=== PATIENT | female | born 1975 ===

== ENCOUNTER 2017-09-19 06:30 | Emergency (ER) | payer OTHER ==
[2017-09-19 06:31] VITALS: BMI 33.0
[2017-09-19 07:06] VITALS: RESP 18
[2017-09-19 07:24] LABS: URINE BILIRUBIN NEGATIVE (NEGATIVE); URINE BLOOD NEGATIVE (NEGATIVE); URINE GLUCOSE (UA) NEGATIVE (NEGATIVE); URINE KETONE NEGATIVE (NEGATIVE); URINE LEUKOCYTE ESTERASE NEGATIVE Leu/uL (NEGATIVE); URINE PROTEIN NEGATIVE mg/dL (<30 mg/dL); URINE UROBILINOGEN 0.2 E.U./dL (<1 E.U./dL)
[2017-09-19 07:34] LABS: URINE APPEARANCE CLEAR (CLEAR); URINE COLOR YELLOW (YELLOW)
--- NOTE | 2017-09-19 08:01 | ED PDOC ---
Arrival/HPI - General Chief Complaint: Female Genitourinary Time Seen by Provider: 09/19/17 07:06 Historian: Patient - History of Present Illness Narrative History of Present Illness (Text): 09/19/17 08:01 A 42 year old female presents to the emergency department complaining of vaginal and suprapubic pain since last night. Patient describes her pain as a burning and tightening sensation. She reports she was recently seen at a clinic to get tested for std's. Patient has not received her results at this time but reports she was placed on Doxycycline. Patient reports dysuria for several days , and is currently still taking doxycyline. She also reports "feeling like my clitoris is swollen" and has some pain with intercourse. Denies vaginal discharge or vaginal bleeding. Denies any upper abdominal pain. Denies any rash. Denies any nausea or vomiting. Time/Duration: Other (last night) Symptom Course: Unchanged Quality: Other Context: Home, Work Past Medical History - Provider Review Nursing Documentation Reviewed: Yes - Infectious Disease Hx of Infectious Diseases: None - Tetanus Immunization Tetanus Immunization: Unknown - Past Medical History Past Medical History: No Previous - Cardiac Hx Cardiac Disorders: No - Pulmonary Hx Respiratory Disorders: No - Neurological Hx Neurological Disorder: No - HEENT Hx HEENT Disorder: No - Renal Hx Renal Disorder: Yes Hx Kidney Stones: Yes (STENT PLACEMENT 2012) - Endocrine/Metabolic Hx Endocrine Disorders: No - Hematological/Oncological Hx Anemia: Yes Hx Blood Transfusions: Yes - Integumentary Hx Dermatological Disorder: No (LIPOMA) - Musculoskeletal/Rheumatological Hx Musculoskeletal Disorders: No - Gastrointestinal Hx Gastrointestinal Disorders: Yes Hx Gall Bladder Disease: Yes (LAP GARRETT 04-14-15) - Genitourinary/Gynecological Hx Genitourinary Disorders: No (7 ABORTIONS) - Psychiatric Hx Psychophysiologic Disorder: No (SMOKED CIGARETTES H/O) Hx Substance Use: No - Past Surgical History Past Surgical History: No Previous - Surgical History Hx Cholecystectomy: Yes Hx Tubal Ligation: Yes Other/Comment: TUBAL LIGATIONLIMPOMA REMOVAL ON ARMS AND LEGS (BILATERAL) - Anesthesia Hx Anesthesia: Yes Hx Anesthesia Reactions: No Hx Malignant Hyperthermia: No - Suicidal Assessment Feels Threatened In Home Enviroment: No Family/Social History - Physician Review Nursing Documentation Reviewed: Yes Family/Social History: No Known Family HX Smoking Status: Former Smoker Hx Alcohol Use: Yes Hx Substance Use: No Hx Substance Use Treatment: No Allergies/Home Meds Allergies/Adverse Reactions: Allergies tramadol Allergy (Verified 08/08/17 14:06) SWELLING tilapia Adverse Reaction (Uncoded 08/08/17 14:06) RASH Home Medications: Home Meds Medication Instructions Recorded Confirmed Doxycycline Hyclate [Acticlate] 150 mg PO TID 09/19/17 09/19/17 Review of Systems - Review of Systems Constitutional: absent: Fatigue, Fevers, Night Sweats Respiratory: absent: SOB Cardiovascular: absent: Chest Pain Gastrointestinal: Abdominal Pain. absent: Stool Changes, Constipation, Diarrhea , Nausea, Vomiting, Appetite Changes, Hematochezia, Hematemesis Genitourinary Female: Dysuria, Other (vaginal pain). absent: Frequency, Urine Output Changes, Vaginal Bleeding, Vaginal Discharge Musculoskeletal: absent: Back Pain Skin: absent: Rash Neurological: absent: Headache, Dizziness Endocrine: absent: Polyuria, Polydipsia Hemo/Lymphatic: absent: Easy Bleeding Physical Exam - Physical Exam Narrative Physical Exam (Text): Head: Atraumatic. Normocephalic. Eyes: PERRL. EOMI. Conjunctivae are not pale. ENT: Mucous membranes are moist and intact. Oropharynx is clear and symmetric. Neck: Supple. Full ROM. No JVD. No lymphadenopathy. Cardiovascular: Regular rate. Regular rhythm. No murmurs, rubs, or gallops. Distal pulses are 2+ and symmetric. Pulmonary/Chest: No evidence of respiratory distress. Abdominal: Soft and non-distended. Mild suprapubic tenderness to palpation. No rebound, guarding, or rigidity. No organomegaly. Good bowel sounds. Genitourinary: Pelvic exam performed by me, chaperoned by scribe. No lesions, no discharge, no bleeding, no rash. No bartholin's abscess noted. No vaginal discharge. Back: No CVA tenderness. No lower back pain. Extremities: No edema. No cyanosis. No clubbing. Full range of motion in all extremities. No calf tenderness. Skin: Skin is warm and dry. No petechiae. No purpura. Neurological: Alert, awake. Motor and sensory exam intact. Psychiatric: Good eye contact. Normal interaction, affect, and behavior. Vital Signs Reviewed: Yes Vital Signs Temp Pulse Resp BP Pulse Ox 09/19/17 09:00 98 F 83 18 120/75 100 09/19/17 07:01 98.8 F 78 18 102/64 99 Temperature: Afebrile Blood Pressure: Normal Pulse: Regular Respiratory Rate: Normal Appearance: Positive for: Well-Appearing, Non-Toxic, Comfortable Pain Distress: None Mental Status: Positive for: Alert and Oriented X 3 Medical Decision Making ED Course and Treatment: 09/19/17 08:01 Impression: A 42 year old female with vaginal and suprapubic pain Differential Diagnosis included but are not limited to: UTI vs. STD vs. Vaginitis Plan: -- Urine culture -- Urinalysis -- Reassess and disposition Progress Notes: Patient's prior visits and history was reviewed. On exam she is afebrile, has no upper abdominal pain. No vomiting or diarrhea. Reports "pain around my clitoris". I examined patient with female scribe friend of the court, there is no lesion or swelling or rash noted, no vaginal bleeding or discharge. Patient is afebrile , nontoxic appearing. Urine culture will be sent as she is complaining of dysuria. She has been treated with doxycycline. With serial exams she is well hydrated, nontoxic appearing, no cva tenderness. She has no RLQ pain, no vomiting or diarrhea. I will prescribe Keflex for possible persistent UTI, and urine culture will be sent, which I discussed with patient. Current UA unremarkable, although urine culture sent due to symptoms. Patient with no fever or joint pain or rash on re-evaluation. Stressed need for close follow-up of symptoms and follow-up of urine culture. - Lab Interpretations Microbiology Results: Microbiology Results 09/19/17 07:11 Urine,Clean Catch Urine Culture - Final Gram Positive Cocci Lab Results: Lab Results 09/19/17 08:33: C.trachomatis RNA (TMA) Not detected, N.gonorrhoeae RNA (TMA) Not detected 09/19/17 07:46: Urine HCG, Qual Negative 09/19/17 07:11: Urine Color Yellow, Urine Appearance Clear, Urine pH 6.0, Ur Specific [place] >= 1.030, Urine Protein Negative, Urine Glucose (UA) Negative, Urine Ketones Negative, Urine Blood Negative, Urine Nitrate Negative, Urine Bilirubin Negative, Urine Urobilinogen 0.2, Ur Leukocyte Esterase Negative - Scribe Statement The provider has reviewed the documentation as recorded by the Koko Marroquin Provider Scribe Attestation: All medical record entries made by the Scribe were at my direction and personally dictated by me. I have reviewed the chart and agree that the record accurately reflects my personal performance of the history, physical exam, medical decision making, and the department course for this patient. I have also personally directed, reviewed, and agree with the discharge instructions and disposition. Disposition/Present on Arrival - Present on Arrival Any Indicators Present on Arrival: No History of DVT/PE: No History of Uncontrolled Diabetes: No Urinary Catheter: No History of Decub. Ulcer: No History Surgical Site Infection Following: None - Disposition Have Diagnosis and Disposition been Completed?: Yes Diagnosis: Vaginal pain, Dysuria Disposition: HOME/ ROUTINE Disposition Time: 11:30 Patient Plan: Discharge Condition: GOOD Discharge Instructions (ExitCare): Abdominal Pain (ED) Additional Instructions: Follow-up with your transplant immunologist tomorrow for re-evaluation. Avoid sexual activity until cleared by transplant immunologist. For any vaginal bleeding, any vaginal discharge, any abdominal pain, any nausea or vomiting, any fevers or chills, any chest pain or shortness of breath, any rash, any rectal pain, any persistent or worsening of symptoms, get rechecked. For any swelling or redness to your vaginal region get rechecked. Take antibiotics as directed. Prescriptions: Cephalexin [Keflex] 250 mg PO QID #28 capsule Ref[place]: [facility] [place] [facility] [place] [facility] [place] - [facility] with [facility] [Outside] - Follow up with primary PCP,NO [Primary Care Provider] - Follow up with primary Forms: [employer] (Cape Verdean)
[2017-09-19 09:27] VITALS: BP 120/75; PULSE 83; TEMP 98; O2SAT 100
== END 2017-09-19 09:27 | disposition home or self-care (01) ==
LOC: ED 06:30
DX: R30.0 Dysuria (principal); R10.2 Pelvic and perineal pain

== ENCOUNTER 2017-09-21 19:55 | Emergency (ER) | payer OTHER ==
[2017-09-21 19:55] VITALS: BMI 33.0
[2017-09-21] MEDS ORDERED: Sodium Chloride 0.9% 1,000 ML IV STA (20:25)
--- NOTE | 2017-09-21 20:40 | ED PDOC ---
Arrival/HPI - General Chief Complaint: Abdominal Pain Time Seen by Provider: 09/21/17 19:59 Historian: Patient - History of Present Illness Narrative History of Present Illness (Text): 09/21/17 20:36 42yo female with no PMhx who present with complaint of diffuse abdominal pain with associated nausea, vomiting and diarrhea since last night. Notes that pain symptoms started after eating hot dog last night. He did not take any medication. He denies fever, chills, hematuria, hematemesis, urinary symptoms, chest pain, sick contact. She is currently on Doxycycline and Keflex for UTI. Past Medical History - Provider Review Nursing Documentation Reviewed: Yes - Infectious Disease Hx of Infectious Diseases: None - Tetanus Immunization Tetanus Immunization: Unknown - Past Medical History Past Medical History: No Previous - Cardiac Hx Cardiac Disorders: No - Pulmonary Hx Respiratory Disorders: No - Neurological Hx Neurological Disorder: No - HEENT Hx HEENT Disorder: No - Renal Hx Renal Disorder: Yes Hx Kidney Stones: Yes (STENT PLACEMENT 2012) - Endocrine/Metabolic Hx Endocrine Disorders: No - Hematological/Oncological Hx Anemia: Yes Hx Blood Transfusions: Yes - Integumentary Hx Dermatological Disorder: No (LIPOMA) - Musculoskeletal/Rheumatological Hx Musculoskeletal Disorders: No - Gastrointestinal Hx Gastrointestinal Disorders: Yes Hx Gall Bladder Disease: Yes (LAP GARRETT 04-14-15) - Genitourinary/Gynecological Hx Genitourinary Disorders: No (7 ABORTIONS) - Psychiatric Hx Psychophysiologic Disorder: No (SMOKED CIGARETTES H/O) Hx Substance Use: No - Past Surgical History Past Surgical History: No Previous - Surgical History Hx Cholecystectomy: Yes Hx Tubal Ligation: Yes Other/Comment: TUBAL LIGATIONLIMPOMA REMOVAL ON ARMS AND LEGS (BILATERAL) - Anesthesia Hx Anesthesia: Yes Hx Anesthesia Reactions: No Hx Malignant Hyperthermia: No - Suicidal Assessment Feels Threatened In Home Enviroment: No Family/Social History - Physician Review Nursing Documentation Reviewed: Yes Family/Social History: Unknown Family HX Smoking Status: Former Smoker Hx Alcohol Use: Yes Hx Substance Use: No Hx Substance Use Treatment: No Allergies/Home Meds Allergies/Adverse Reactions: Allergies tramadol Allergy (Verified 08/08/17 14:06) SWELLING tilapia Adverse Reaction (Uncoded 08/08/17 14:06) RASH Home Medications: Home Meds Medication Instructions Recorded Confirmed Doxycycline Hyclate [Acticlate] 150 mg PO TID 09/19/17 09/21/17 Review of Systems - Physician Review All systems were reviewed & negative as marked: Yes - Review of Systems Constitutional: Normal Eyes: Normal ENT: Normal Respiratory: Normal Cardiovascular: Normal Gastrointestinal: Abdominal Pain, Diarrhea, Nausea, Vomiting. absent: Constipation, Hematochezia, Hematemesis Genitourinary Female: Normal Musculoskeletal: Normal Skin: Normal Neurological: Normal Endocrine: Normal Hemo/Lymphatic: Normal Psychiatric: Normal Physical Exam Vital Signs Reviewed: Yes Vital Signs Temp Pulse Resp BP Pulse Ox 09/22/17 00:09 97.9 F 83 19 131/64 100 09/21/17 21:55 98.6 F 80 17 110/58 L 100 09/21/17 19:59 98.2 F 102 H 18 99 09/21/17 19:55 98.6 F 89 16 102/60 100 Temperature: Afebrile Blood Pressure: Normal Pulse: Regular Respiratory Rate: Normal Appearance: Positive for: Well-Appearing, Non-Toxic, Comfortable Pain Distress: None Mental Status: Positive for: Alert and Oriented X 3 - Systems Exam Head: Present: Atraumatic, Normocephalic Pupils: Present: PERRL Extroacular Muscles: Present: EOMI Conjunctiva: Present: Normal Mouth: Present: Moist Mucous Membranes Neck: Present: Normal Range of Motion Respiratory/Chest: Present: Clear to Auscultation, Good Air Exchange. No: Respiratory Distress, Accessory Muscle Use Cardiovascular: Present: Regular Rate and Rhythm, Normal S1, S2. No: Murmurs Abdomen: Present: Tenderness (Mild diffuse tenderness with deep palpation), Normal Bowel Sounds, Other (Soft). No: Distention, Peritoneal Signs, Rebound, Guarding, McBurney's Point Tender, Rovsing's Sign Present Back: Present: Normal Inspection Upper Extremity: Present: Normal Inspection. No: Cyanosis, Edema Lower Extremity: Present: Normal Inspection. No: Edema Neurological: Present: GCS=15, CN II-XII Intact, Speech Normal Skin: Present: Warm, Dry, Normal Color. No: Rashes Psychiatric: Present: Alert, Oriented x 3, Normal Insight, Normal Concentration Medical Decision Making ED Course and Treatment: 09/22/17 01:19 Pt was comfortable in ED. Her lab was unremarkable. Result was DW the pt. Pt likely have enteritis. she was advised to follow BLAND diet. Referred to her PMD /clinic. T ED for any new or worsening symptoms - Lab Interpretations Lab Results: 09/21/17 21:00 09/21/17 21:00 Lab Results 09/21/17 22:00: Urine Color Yellow, Urine Appearance Clear, Urine pH 6.0, Ur Specific [place] >= 1.030, Urine Protein Trace H, Urine Glucose (UA) Negative, Urine Ketones Negative, Urine Blood Trace-intact H, Urine Nitrate Negative, Urine Bilirubin Negative, Urine Urobilinogen 0.2, Ur Leukocyte Esterase Negative , Urine RBC 2 - 5, Urine WBC 0 - 2, Ur Epithelial Cells 3 - 4, Urine Bacteria Many 09/21/17 21:00: Sodium 141, Potassium 3.6, Chloride 103, Carbon Dioxide 29, Anion Gap 13, BUN 5 L, Creatinine 0.8, Est GFR ( Amer) > 60, Est GFR (Non -Af Amer) > 60, Random Glucose 100, Calcium 8.8, Total Bilirubin 0.7, AST 26, ALT 30, Alkaline Phosphatase 98, Total Protein 7.8, Albumin 4.2, Globulin 3.6, Albumin/Globulin Ratio 1.2, Lipase 54 09/21/17 21:00: PT 11.6, INR 1.06, APTT 21.9 L 09/21/17 21:00: WBC 6.9 D, RBC 4.38, Hgb 12.6, Hct 39.1, MCV 89.3, MCH 28.8, MCHC 32.2, RDW 13.8, Plt Count 238, MPV 10.9, Gran % 68.8 H, Lymph % (Auto) 25.5 , Granite % (Auto) 4.1, Eos % (Auto) 1.5, Baso % (Auto) 0.1, Gran # 4.73, Lymph # 1.8, Granite # 0.3, Eos # 0.1, Baso # 0.01 - Medication Orders Current Medication Orders: Discontinued Medications Famotidine (Pepcid) 20 mg IVP STAT STA Stop: 09/21/17 20:26 Sodium Chloride (Sodium Chloride 0.9%) 1,000 mls @ 1,000 mls/hr IV .Q1H STA Stop: 09/21/17 21:24 Ondansetron HCl (Zofran Inj) 4 mg IVP STAT STA Stop: 09/21/17 20:26 Disposition/Present on Arrival - Present on Arrival Any Indicators Present on Arrival: No History of DVT/PE: No History of Uncontrolled Diabetes: No Urinary Catheter: No History of Decub. Ulcer: No History Surgical Site Infection Following: None - Disposition Have Diagnosis and Disposition been Completed?: Yes Diagnosis: Gastroenteritis Disposition: HOME/ ROUTINE Disposition Time: 23:35 Patient Plan: Discharge Condition: STABLE Additional Instructions: Drink plenty of fluid and follow BLAND diet follow up with your Doctor Return to ED for any new or worsening symptoms Prescriptions: Ondansetron ODT [Zofran ODT] 4 mg PO Q6 #6 odt Referrals: PCP,NO [Primary Care Provider] - Follow up with primary [facility] [place] - Follow up with primary Forms: [employer] (Yi)
[2017-09-21 21:26] LABS: BASO # 0.01 K/mm3 (0.0-2.0); BASO % 0.1 % (0.0-3.0); EOS # 0.1 (0.0-0.7); EOS % 1.5 % (1.5-5.0); GRAN # 4.73 (1.4-6.5); GRAN % 68.8 % (50.0-68.0); HEMATOCRIT 39.1 % (36.0-48.0); LYMPH # 1.8 (1.2-3.4); LYMPH % 25.5 % (22.0-35.0); MEAN CELL VOLUME 89.3 fl (80.0-105.0); MEAN CORPUSCULAR HEMOGLOBIN 28.8 pg (25.0-35.0); MEAN CORPUSCULAR HGB CONC 32.2 g/dl (31.0-37.0); MEAN PLATELET VOLUME 10.9 fl (7.0-11.0); MONO # 0.3 (0.1-0.6); MONO % 4.1 % (1.0-6.0); RED CELL DISTRIBUTION WIDTH 13.8 % (11.5-14.5); WHITE BLOOD COUNT 6.9 10^3/ul (4.5-11.0)
[2017-09-21 21:36] LABS: INR 1.06 (0.93-1.08); PARTIAL THROMBOPLASTIN TIME 21.9 Seconds (25.1-36.5)
[2017-09-21 21:39] LABS: ALB/GLOB RATIO 1.2 (1.1-1.8); ALKALINE PHOSPHATASE 98 U/L (38-126); ALT/SGPT 30 U/L (7-56); AST/SGOT 26 U/L (14-36); BILIRUBIN,TOTAL 0.7 mg/dL (0.2-1.3); BLOOD UREA NITROGEN 5 mg/dL (7-21); CALCIUM 8.8 mg/dL (8.4-10.5); CARBON DIOXIDE 29 mmol/L (21-33); CHLORIDE 103 mmol/L (98-107); GFR AFRICAN-AMERICAN > 60; GLUCOSE,RANDOM 100 mg/dL (70-110); LIPASE 54 U/L (23-300); POTASSIUM 3.6 mmol/L (3.6-5.0); SODIUM 141 mmol/L (132-148); TOTAL PROTEIN 7.8 g/dL (5.8-8.3)
[2017-09-21 23:34] VITALS: O2SAT 100
[2017-09-22 00:02] LABS: URINE BILIRUBIN NEGATIVE (NEGATIVE); URINE BLOOD TRACE-INTACT (NEGATIVE); URINE GLUCOSE (UA) NEGATIVE (NEGATIVE); URINE KETONE NEGATIVE (NEGATIVE); URINE LEUKOCYTE ESTERASE NEGATIVE Leu/uL (NEGATIVE); URINE PROTEIN TRACE mg/dL (<30 mg/dL); URINE UROBILINOGEN 0.2 E.U./dL (<1 E.U./dL)
[2017-09-22 00:04] LABS: URINE APPEARANCE CLEAR (CLEAR); URINE COLOR YELLOW (YELLOW)
[2017-09-22 00:10] VITALS: BP 131/64; PULSE 83; RESP 19; TEMP 97.9
[2017-09-22 00:34] LABS: URINE BACTERIA MANY (NEG); URINE WBC 0 - 2 /hpf (0-6)
== END 2017-09-22 00:09 | disposition home or self-care (01) ==
LOC: ED 19:55
DX: K52.9 Noninfective gastroenteritis and colitis, unspecified (principal); Z87.891 Personal history of nicotine dependence

== ENCOUNTER 2017-11-30 20:31 | Emergency (ER) | payer SELFPAY ==
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
[2017-11-30] MEDS ORDERED: cefTRIAXone (Rocephin) 250 mg Inj IM STA (20:47)
[2017-11-30 20:59] VITALS: BMI 32.0
[2017-11-30 21:02] LABS: URINE BILIRUBIN NEGATIVE (NEGATIVE); URINE BLOOD MODERATE (NEGATIVE); URINE GLUCOSE (UA) NEGATIVE (NEGATIVE); URINE LEUKOCYTE ESTERASE TRACE Leu/uL (NEGATIVE); URINE NITRATE NEGATIVE (NEGATIVE); URINE PROTEIN NEGATIVE mg/dL (<30 mg/dL); URINE UROBILINOGEN 0.2 E.U./dL (<1 E.U./dL)
[2017-11-30 21:03] LABS: HCG,QUALITATIVE URINE NEGATIVE (NEGATIVE)
[2017-11-30 21:04] LABS: URINE APPEARANCE SLIGHT-CLOUDY (CLEAR); URINE COLOR YELLOW (YELLOW)
[2017-11-30 21:07] LABS: URINE BACTERIA MOD (NEG)
[2017-11-30] MEDS ORDERED: Lidocaine 1% Inj (20ml) ONE (21:07)
[2017-11-30 21:33] VITALS: BP 128/72; PULSE 89; RESP 17; TEMP 98.5; O2SAT 100
== END 2017-11-30 21:33 | disposition home or self-care (01) ==
LOC: ED 20:31
DX: N39.0 Urinary tract infection, site not specified (principal); A64 Unspecified sexually transmitted disease; R10.2 Pelvic and perineal pain; Z87.891 Personal history of nicotine dependence
CPT/HCPCS: 81001; 84703; 87086; 87491; 87591; 96372; 99282; J0696; J1885

== ENCOUNTER 2018-04-10 02:00 | Emergency (ER) | payer SELFPAY ==
[2018-04-10 02:24] VITALS: BMI 33.8
[2018-04-10 02:29] VITALS: BP 108/59; PULSE 62; RESP 18; TEMP 98; O2SAT 100
--- NOTE | 2018-04-10 02:38 | ED PDOC ---
Arrival/HPI - General Chief Complaint: Eye Problem Time Seen by Provider: 04/10/18 02:23 - History of Present Illness Narrative History of Present Illness (Text): 04/10/18 02:38 42 year old female, who denies any significant past medical history, presents to the emergency department complaining of redness and pain to the right eye. 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 Patient reports irritation and small amount of white discharge. She wears contact, but took them off after the incident. Patient reports blurry vision, but denies any fever, headache, dizziness, or any other complaints. Past Medical History - Provider Review Nursing Documentation Reviewed: Yes - Past History Past History: No Previous - Infectious Disease Hx of Infectious Diseases: None - Tetanus Immunization Tetanus Immunization: Unknown - Past Medical History Past Medical History: No Previous - Cardiac Hx Cardiac Disorders: No - Pulmonary Hx Respiratory Disorders: No - Neurological Hx Neurological Disorder: No - HEENT Hx HEENT Disorder: No - Renal Hx Renal Disorder: Yes Hx Kidney Stones: Yes (STENT PLACEMENT 2012) - Endocrine/Metabolic Hx Endocrine Disorders: No - Hematological/Oncological Hx Blood Disorders: Yes Hx Anemia: Yes - Integumentary Hx Dermatological Disorder: No (LIPOMA) - Musculoskeletal/Rheumatological Hx Musculoskeletal Disorders: Yes Hx Arthritis: Yes - Gastrointestinal Hx Gastrointestinal Disorders: Yes Hx Gall Bladder Disease: Yes (LAP GARRETT 04-14-15) - Genitourinary/Gynecological Hx Genitourinary Disorders: No - Psychiatric Hx Psychophysiologic Disorder: Yes Hx Anxiety: Yes Hx Depression: Yes Hx Substance Use: No - Past Surgical History Past Surgical History: No Previous - Surgical History Hx Cholecystectomy: Yes - Anesthesia Hx Anesthesia: Yes Hx Anesthesia Reactions: No Hx Malignant Hyperthermia: No - Suicidal Assessment Feels Threatened In Home Enviroment: No Family/Social History - Physician Review Nursing Documentation Reviewed: Yes Family/Social History: No Known Family HX Smoking Status: Former Smoker Hx Alcohol Use: Yes Hx Substance Use: No Hx Substance Use Treatment: No Allergies/Home Meds Allergies/Adverse Reactions: Allergies tramadol Allergy (Verified 04/10/18 02:24) SWELLING tilapia Adverse Reaction (Uncoded 04/10/18 02:24) RASH Review of Systems - Physician Review All systems were reviewed & negative as marked: Yes - Review of Systems Constitutional: absent: Fevers Neurological: absent: Headache Physical Exam - Physical Exam Narrative Physical Exam (Text): Constitutional: No acute distress. Head: Normocephalic. Atraumatic. Eyes: PERRL. Redness to the right eye. Sensitive to light. With florescence there was small area uptake. No Hyphema. No Mazin test. No foreign body seen in eye lids. ENT: Moist mucous membranes. Neck: Supple. Cardiovascular: Regular rate. Chest: No tenderness. Respiratory: Clear to auscultation bilaterally. GI: Soft. Nontender. Nondistended. Back: No CVA tenderness. Musculoskeletal: No tenderness or swelling of extremities. Skin: No rash. Neurologic: Alert, no focal deficit. 04/10/18 03:08 Vital Signs Reviewed: Yes Vital Signs Temp Pulse Resp BP Pulse Ox 04/10/18 02:28 98.0 F 62 18 108/59 L 100 Medical Decision Making ED Course and Treatment: 04/10/18 02:38 Plan: -- Florescence procedure. -- Reassess and disposition Progress Notes: I have discussed the results and plan with the patient, who expresses understanding. Patient was advised to take Motrin or Tylenol for the pain and was given antibiotic eye drops. Patient in agreement with plan to be discharged home. Patient is stable for discharge. Patient was instructed to follow up with top polisher, or return if symptoms worsen or new concerning symptoms arise. - Scribe Statement The provider has reviewed the documentation as recorded by the Scribe Amanda Persaud Provider Scribe Attestation: All medical record entries made by the Scribe were at my direction and personally dictated by me. I have reviewed the chart and agree that the record accurately reflects my personal performance of the history, physical exam, medical decision making, and the department course for this patient. I have also personally directed, reviewed, and agree with the discharge instructions and disposition. Disposition/Present on Arrival - Present on Arrival Any Indicators Present on Arrival: No History of DVT/PE: No History of Uncontrolled Diabetes: No Urinary Catheter: No History of Decub. Ulcer: No History Surgical Site Infection Following: None - Disposition Have Diagnosis and Disposition been Completed?: Yes Diagnosis: Corneal abrasion Disposition: HOME/ ROUTINE Disposition Time: 02:39 Patient Plan: Discharge Condition: STABLE Discharge Instructions (ExitCare): Corneal Abrasion Additional Instructions: Do not wear your contacts. Prescriptions: Tobramycin 0.3% [Tobrex 0.3% Ophth Soln] 2 drop OP Q6H #1 bottle Referrals: Timo Macias MD [Staff Provider] - Follow up with primary Forms: [employer] (Czech), WORK NOTE
== END 2018-04-10 02:47 | disposition home or self-care (01) ==
LOC: ED 02:00
DX: S05.01XA Injury of conjunctiva and corneal abrasion without foreign body, right eye, initial encounter (principal); X58.XXXA Exposure to other specified factors, initial encounter; Z87.891 Personal history of nicotine dependence

== ENCOUNTER 2018-09-23 04:00 | Emergency (ER) | payer OTHER ==
[2018-09-23 04:00] VITALS: BMI 33.8
[2018-09-23 04:18] VITALS: TEMP 98.1; O2SAT 100
--- NOTE | 2018-09-23 04:32 | ED PDOC ---
Arrival/HPI - General Chief Complaint: Palpitations Time Seen by Provider: 09/23/18 04:18 Historian: Patient - History of Present Illness Narrative History of Present Illness (Text): 09/23/18 04:28 A 43 year old female, with no significant past medical history, presents to the emergency department with a complaint of left- sided chest pain, SOB, and palpitations. Patient notes that she began to feel short of breath and a heart racing sensation tonight as she was sleeping. The patient notes that the chest pain has been occurring intermittently and she experienced it last week, as well as 2 days prior. She notes the chest pain is burning like, without radiation, not associated with exertion, only palpitations. The patient's last normal menstrual period was 08/06. The patient denies any fever, chills, abdominal pain, nausea, vomiting, diarrhea, urinary symptoms, back pain, neck pain, headache, dizziness, or any other complaints. PMD: Dr. Altman 09/25/18 22:36 Time/Duration: Other (Today) Symptom Onset: Sudden Symptom Course: Intermittent Activities at Onset: Rest, Light Context: Home Past Medical History - Provider Review Nursing Documentation Reviewed: Yes - Past History Past History: No Previous - Infectious Disease Hx of Infectious Diseases: None - Tetanus Immunization Tetanus Immunization: Unknown - Past Medical History Past Medical History: No Previous - Cardiac Hx Cardiac Disorders: No - Pulmonary Hx Respiratory Disorders: No - Neurological Hx Neurological Disorder: No - HEENT Hx HEENT Disorder: No - Renal Hx Renal Disorder: Yes Hx Kidney Stones: Yes (STENT PLACEMENT 2012) - Endocrine/Metabolic Hx Endocrine Disorders: No - Hematological/Oncological Hx Blood Disorders: Yes Hx Anemia: Yes - Integumentary Hx Dermatological Disorder: No (LIPOMA) - Musculoskeletal/Rheumatological Hx Musculoskeletal Disorders: Yes Hx Arthritis: Yes - Gastrointestinal Hx Gastrointestinal Disorders: Yes Hx Gall Bladder Disease: Yes (LAP GARRETT 04-14-15) - Genitourinary/Gynecological Hx Genitourinary Disorders: No - Psychiatric Hx Psychophysiologic Disorder: Yes Hx Anxiety: Yes Hx Depression: Yes Hx Substance Use: No - Past Surgical History Past Surgical History: No Previous - Surgical History Hx Cholecystectomy: Yes - Anesthesia Hx Anesthesia: Yes Hx Anesthesia Reactions: No Hx Malignant Hyperthermia: No - Suicidal Assessment Feels Threatened In Home Enviroment: No Family/Social History - Physician Review Nursing Documentation Reviewed: Yes Family/Social History: No Known Family HX Smoking Status: Former Smoker Hx Alcohol Use: Yes Hx Substance Use: No Hx Substance Use Treatment: No Allergies/Home Meds Allergies/Adverse Reactions: Allergies tramadol Allergy (Verified 04/10/18 02:24) SWELLING tilapia Adverse Reaction (Uncoded 04/10/18 02:24) RASH Review of Systems - Physician Review All systems were reviewed & negative as marked: Yes - Review of Systems Constitutional: absent: Fatigue, Weight Change, Fevers, Night Sweats Eyes: absent: Vision Changes, Photophobia, Eye Pain ENT: absent: Hearing Changes, Tinnitus, TMJ Pain, Voice Changes Respiratory: SOB. absent: Cough, Sputum, Wheezing Cardiovascular: Chest Pain, Palpitations. absent: Edema, Calf Pain, GOODRICH, Orthopnea, Syncope Gastrointestinal: absent: Abdominal Pain, Stool Changes, Constipation, Diarrhea, Nausea, Vomiting, Hematochezia, Hematemesis Genitourinary Female: absent: Dysuria, Frequency, Urine Output Changes Musculoskeletal: absent: Arthralgias, Back Pain, Neck Pain Skin: absent: Rash, Pruritis Neurological: absent: Headache, Dizziness Psychiatric: absent: Anxiety, Depression, Suicidal Ideation Physical Exam Vital Signs Reviewed: Yes Vital Signs Temp Pulse Resp BP Pulse Ox 09/23/18 04:17 98.1 F 80 16 124/74 100 Temperature: Afebrile Blood Pressure: Normal Pulse: Regular Respiratory Rate: Normal Appearance: Positive for: Well-Appearing, Non-Toxic, Comfortable Pain Distress: None Mental Status: Positive for: Alert and Oriented X 3 - Systems Exam Head: Present: Atraumatic, Normocephalic Pupils: Present: PERRL Extroacular Muscles: Present: EOMI Conjunctiva: Present: Normal Mouth: Present: Moist Mucous Membranes Neck: Present: Normal Range of Motion. No: Meningeal Signs, MIDLINE TENDERNESS Respiratory/Chest: Present: Clear to Auscultation, Good Air Exchange, Tender to Palpation (Reproducible chest pain to palpation.). No: Respiratory Distress, Accessory Muscle Use Cardiovascular: Present: Regular Rate and Rhythm, Normal S1, S2. No: Murmurs Abdomen: No: Tenderness, Distention, Peritoneal Signs Back: Present: Normal Inspection Upper Extremity: Present: Normal Inspection. No: Cyanosis, Edema Lower Extremity: Present: Normal Inspection. No: Edema Neurological: Present: GCS=15, CN II-XII Intact, Speech Normal Skin: Present: Warm, Dry, Normal Color. No: Rashes Psychiatric: Present: Alert, Oriented x 3, Normal Insight, Normal Concentration Medical Decision Making ED Course and Treatment: 09/23/18 04:32 Impression: A 43 year old female presents to the emergency department with a complaint of intermittent chest pain, SOB, and palpitations. Multiple episodes throughtout the weak, however with chest pain palpable on exam. Unlikely cardiac chest pain given re-producible nature, and without RF. Low pretest wells, Pt has PERCed out. HEART Score: Stor: 0 Age: 0 RF: 0 EK troponin: pending Plan: -- EKG -- Labs -- Reassess and disposition Prior Visits: Notes and results from previous visits were reviewed. Progress Notes: EKG: Ordered, reviewed, and independently interpreted the EKG. Rate : 78 BPM Rhythm : NSR Interpretation : No STEMI 09/23/18 06:55 labs unremarkable, XR unremarkable Heart score: 0 CP improved, and now fully resolved clear for d/c home w/ return indications and followup, pt agreeable. - Lab Interpretations I have reviewed the lab results: Yes - EKG Interpretation Interpreted by ED Physician: Yes Type: 12 lead EKG - Scribe Statement The provider has reviewed the documentation as recorded by the Scribe Barbara Huffman Provider Scribe Attestation: All medical record entries made by the Scribe were at my direction and personally dictated by me. I have reviewed the chart and agree that the record accurately reflects my personal performance of the history, physical exam, medical decision making, and the department course for this patient. I have also personally directed, reviewed, and agree with the discharge instructions and disposition. Disposition/Present on Arrival - Present on Arrival Any Indicators Present on Arrival: No History of DVT/PE: No History of Uncontrolled Diabetes: No Urinary Catheter: No History of Decub. Ulcer: No History Surgical Site Infection Following: None - Disposition Have Diagnosis and Disposition been Completed?: Yes Diagnosis: Chest wall pain Disposition: HOME/ ROUTINE Disposition Time: 06:55 Condition: GOOD Discharge Instructions (ExitCare): Costochondritis, Chest Pain That Is Not Caused by the Heart (DC), Chest Pain (ED) Additional Instructions: KARELY MARTIN, thank you for letting us take care of you today. Your provider was Mark Small and you were treated for shortness of breath / heart problem. The emergency medical care you received today was directed at your acute symptoms. If you were prescribed any medication, please fill it and take as directed. It may take several days for your symptoms to resolve. Return to the Emergency Department if your symptoms worsen, do not improve, or if you have any other problems. Please contact your doctor or call one of the physicians/clinics you have been referred to that are listed on the Patient Visit Information form that is included in your discharge packet. Bring any paperwork you were given at discharge with you along with any medications you are taking to your follow up visit. Our treatment cannot replace ongoing medical care by a primary care provider outside of the emergency department. Thank you for allowing the [facility] team to be part of your care today. If you had an X-Ray or CT scan: A Radiologist will review the ED reading if any change in treatment is needed we will contact you. If you had a blood, urine, or wound culture: It will take several days for the results, if any change in treatment is needed we will contact you. If you had an STI test: It will take 48 hours for the results. Please call after 1 week if you have not heard back. Referrals: [facility] [Outside] - Follow up with primary [facility] [place] - Follow up with primary [facility] [Outside] - Follow up with primary Neil Mtz MD [Staff Provider] - Follow up with primary Forms: [employer] (Slovak)
[2018-09-23 05:07] LABS: BASO # 0.03 K/mm3 (0.0-2.0); BASO % 0.3 % (0.0-3.0); EOS # 0.2 (0.0-0.7); EOS % 1.9 % (1.5-5.0); GRAN # 6.31 (1.4-6.5); HEMOGLOBIN 12.6 g/dL (12.0-16.0); LYMPH # 3.2 (1.2-3.4); MEAN CORPUSCULAR HGB CONC 31.8 g/dl (31.0-37.0); MONO # 0.5 (0.1-0.6); MONO % 4.8 % (1.0-6.0); RBC 4.5 10^6/uL (3.5-6.1); WHITE BLOOD COUNT 10.2 10^3/uL (4.5-11.0)
[2018-09-23 05:09] LABS: ALB/GLOB RATIO 1.2 (1.1-1.8); ALBUMIN 4.4 g/dL (3.0-4.8); ALT/SGPT 26 U/L (7-56); AST/SGOT 25 U/L (14-36); BLOOD UREA NITROGEN 13 mg/dL (7-21); CALCIUM 9.3 mg/dL (8.4-10.5); GFR NON-AFRICAN AMERICAN > 60
[2018-09-23 05:19] LABS: TROPONIN I < 0.01 ng/mL
[2018-09-23 07:18] VITALS: BP 118/89; PULSE 85; RESP 18
--- NOTE | 2018-09-23 09:00 | RAD ---
Date of service: 09/23/2018 HISTORY: cp COMPARISON: 05/30/2016 FINDINGS: LUNGS: No active pulmonary disease. PLEURA: No significant pleural effusion identified, no pneumothorax apparent. CARDIOVASCULAR: No aortic atherosclerotic calcification present. Normal cardiac size. No pulmonary vascular congestion. OSSEOUS STRUCTURES: No significant abnormalities. VISUALIZED UPPER ABDOMEN: Normal. OTHER FINDINGS: None. IMPRESSION: No active disease.
--- NOTE | 2018-09-23 21:02 | CARD ---
APPROVED REPORT Date of service: 09/23/2018 EKG Measurement Heart [id number] <Conclusion> Normal sinus rhythm Normal ECG
== END 2018-09-23 07:00 | disposition home or self-care (01) ==
LOC: ED 04:00
DX: R07.89 Other chest pain (principal); F41.9 Anxiety disorder, unspecified; Z87.891 Personal history of nicotine dependence

== ENCOUNTER 2018-12-17 12:40 | Emergency (ER) | payer MEDICAID, OTHER ==
[2018-12-17 12:41] VITALS: BMI 33.8
[2018-12-17 14:22] VITALS: RESP 18
[2018-12-17 14:28] VITALS: TEMP 98.4
[2018-12-17] MEDS ORDERED: Sodium Chloride 0.9% 1,000 ML IV STA (14:39)
[2018-12-17 15:30] LABS: BASO # 0.02 K/mm3 (0.0-2.0); BASO % 0.2 % (0.0-3.0); EOS # 0.1 (0.0-0.7); HEMOGLOBIN 12.1 g/dL (12.0-16.0); LYMPH # 2.2 (1.2-3.4); LYMPH % 26.4 % (22.0-35.0); MEAN CORPUSCULAR HGB CONC 31.8 g/dl (31.0-37.0); MEAN PLATELET VOLUME 10.9 fl (7.0-11.0); MONO # 0.4 (0.1-0.6); MONO % 4.6 % (1.0-6.0); RBC 4.32 10^6/uL (3.5-6.1); RED CELL DISTRIBUTION WIDTH 14.3 % (11.5-14.5); WHITE BLOOD COUNT 8.3 10^3/uL (4.5-11.0)
--- NOTE | 2018-12-17 15:35 | ED PDOC ---
Arrival/HPI - General Chief Complaint: Shortness Of Breath Time Seen by Provider: 12/17/18 13:14 Historian: Patient - History of Present Illness Narrative History of Present Illness (Text): 12/17/18 15:30 43 year old f with no significant pmh presents to the emergency department complaining of L. side rib pain w/ dyspnea and feeling light headed which started at 12pm while she was at home. States that the pain is worse with mo vement and reproducible with palpation. Patient denies trauma or injury. Patient also have complaints have nausea and 3 episodes of diarrhea. Patient denies any lower extremity pain, slurred speech, fevers, chills, headache, chest pain, shortness of breath, cough, abdominal pain, vomiting, neck pain, or any other complaint. Time/Duration: > week Symptom Course: Unchanged Activities at Onset: Light Context: Home Past Medical History - Provider Review Nursing Documentation Reviewed: Yes - Past History Past History: No Previous - Infectious Disease Hx of Infectious Diseases: None - Tetanus Immunization Tetanus Immunization: Unknown - Past Medical History Past Medical History: No Previous - Cardiac Hx Cardiac Disorders: No - Pulmonary Hx Respiratory Disorders: No - Neurological Hx Neurological Disorder: No - HEENT Hx HEENT Disorder: No - Renal Hx Renal Disorder: Yes Hx Kidney Stones: Yes (STENT PLACEMENT 2012) - Endocrine/Metabolic Hx Endocrine Disorders: No - Hematological/Oncological Hx Blood Disorders: Yes Hx Anemia: Yes - Integumentary Hx Dermatological Disorder: No (LIPOMA) - Musculoskeletal/Rheumatological Hx Musculoskeletal Disorders: Yes Hx Arthritis: Yes - Gastrointestinal Hx Gastrointestinal Disorders: Yes Hx Gall Bladder Disease: Yes (LAP GARRETT 04-14-15) - Genitourinary/Gynecological Hx Genitourinary Disorders: No - Psychiatric Hx Psychophysiologic Disorder: Yes Hx Anxiety: Yes Hx Depression: Yes Hx Substance Use: No - Past Surgical History Past Surgical History: No Previous - Surgical History Hx Cholecystectomy: Yes - Anesthesia Hx Anesthesia: Yes Hx Anesthesia Reactions: No Hx Malignant Hyperthermia: No - Suicidal Assessment Feels Threatened In Home Enviroment: No Family/Social History - Physician Review Nursing Documentation Reviewed: Yes Family/Social History: Hypertension, Other (Maternal [place] at age 65) Smoking Status: Former Smoker Hx Alcohol Use: Yes Hx Substance Use: No Hx Substance Use Treatment: No Allergies/Home Meds Allergies/Adverse Reactions: Allergies tramadol Allergy (Verified 04/10/18 02:24) SWELLING tilapia Adverse Reaction (Uncoded 04/10/18 02:24) RASH Review of Systems - Physician Review All systems were reviewed & negative as marked: Yes - Review of Systems Constitutional: absent: Fevers ENT: Normal. absent: Rhinorrhea Respiratory: Other (Dyspnea due to left sided Rib pain). absent: SOB Cardiovascular: absent: Chest Pain Gastrointestinal: Diarrhea, Nausea. absent: Abdominal Pain, Vomiting Musculoskeletal: Arthralgias (Left sided rib pain). absent: Back Pain Skin: Normal. absent: Rash Neurological: Other (lightheaded). absent: Speech Changes Physical Exam Vital Signs Reviewed: Yes Vital Signs Temp Pulse Resp BP Pulse Ox 12/17/18 14:50 81 18 109/66 100 12/17/18 14:27 98.4 F 84 18 108/57 L 100 12/17/18 14:19 18 98 Pain Distress: Mild - Systems Exam Head: Present: Atraumatic, Normocephalic Pupils: Present: PERRL Extroacular Muscles: Present: EOMI Conjunctiva: Present: Normal Mouth: Present: Moist Mucous Membranes Neck: Present: Normal Range of Motion. No: Meningeal Signs, MIDLINE TENDERNESS, Lymphadenopathy Respiratory/Chest: Present: Clear to Auscultation, Good Air Exchange, Tender to Palpation (to the L lateral ribs, pain is ilicited when the patient lays down). No: Respiratory Distress, Accessory Muscle Use Cardiovascular: Present: Regular Rate and Rhythm, Normal S1, S2. No: Murmurs Abdomen: Present: Normal Bowel Sounds. No: Tenderness, Distention, Peritoneal Signs Back: Present: Normal Inspection. No: Midline Tenderness Upper Extremity: Present: Normal Inspection. No: Edema Lower Extremity: Present: Normal Inspection. No: Edema Neurological: Present: GCS=15, CN II-XII Intact, Speech Normal, Motor Func Grossly Intact, Normal Sensory Function Skin: Present: Warm, Dry. No: Rashes Psychiatric: Present: Alert, Oriented x 3, Normal Insight, Normal Concentration Medical Decision Making ED Course and Treatment: 12/17/18 15:43 Previous medical records reviewed, patient was seen on November 03, 2017 for chest pain at [facility] emergency room, during that visit patient had a normal EKG and chest x-ray, negative troponin, she also had a CTA of the chest which showed no PE. Patient was also seen in this emergency room on September 23, 2018 for left-sided chest pain, shortness of breath and palpitations, during that ER visit here she had a normal EKG, normal chest x-ray and a negative troponin. Impression: 43 year old f presents to the emergency department complaining of L. side rib pain w/ dyspnea and feeling light headed. Patient also have complaints have nausea and 3 episodes of diarrhea. Plan: --Labs --EKG --Toradol --Zofran --Saline IV 1000ml -- Reassess and disposition Prior Visits: Notes and results from previous visits were reviewed. Patient was last seen in the emergency department on Progress Notes: PERC Rule for Pulmonary Embolism: RESULT SUMMARY: 0 criteria No need for further workup, as <2% chance of PE. INPUTS: Age >50 > 0 = No HR >100 > 0 = No SaO2 on room air <95% > 0 = No Unilateral leg swelling > 0 = No Hemoptysis > 0 = No Recent surgery or trauma > 0 = No Prior PE or DVT > 0 = No Hormone use > 0 = No EKG: NSR at 83 bpm, normal axis, (-) acute ST changes, as read by MARILYN. CXR : NAD, as read by PA Labs reviewed and within normal limits including negative troponin. 12/17/18 16:09 On reevaluation, patient reports improvement of symptoms, denies any CP, abdominal pain or SOB. On exam, patient remains awake alert and oriented 3 in no acute distress, she is laying in bed comfortably, playing a game of [employer] on her cellphone as I am discussing the diagnostic results with her in great detail. Advised to follow up with the clinic in 1-2 days without fail. Advised to take otc tylenol for pain. Advised that her symptoms may be due to costochondritis. Advised to return to the emergency room at any time for any new or worsening symptoms. Patient states she fully agrees with and understands discharge instructions. States that she agrees with the plan and disposition. Verbalized and repeated discharge instructions and plan. I have given the patient opportunity to ask any additional questions. - RAD Interpretation Radiology Orders: 12/17/18 14:38 CHEST PORTABLE [RAD] Stat - Medication Orders Current Medication Orders: Sodium Chloride (Sodium Chloride 0.9%) 1,000 mls @ 1,000 mls/hr IV .Q1H STA Stop: 12/17/18 15:38 Last Admin: 12/17/18 15:06 Dose: 1,000 mls/hr eMAR Start Stop Document 12/17/18 15:06 EQ (Rec: 12/17/18 15:06 EQ [id number]) Intravenous Solution Start Date 12/17/18 Start Time 15:06 Discontinued Medications Ketorolac Tromethamine (Toradol) 30 mg IVP STAT STA Stop: 12/17/18 14:40 Last Admin: 12/17/18 15:06 Dose: 30 mg MAR Pain Assessment Document 12/17/18 15:06 EQ (Rec: 12/17/18 15:07 EQ [id number]) Pain Reassessment Is this a pain reassessment? No Sleep Is patient sleeping during reassessment? No Presence of Pain Presence of Pain Yes IVP Administration Document 12/17/18 15:06 EQ (Rec: 12/17/18 15:07 EQ [id number]) Charges for Administration # of IVP Administrations 1 Ondansetron HCl (Zofran Inj) 4 mg IVP STAT STA Stop: 12/17/18 14:41 Last Admin: 12/17/18 15:07 Dose: 4 mg IVP Administration Document 12/17/18 15:07 EQ (Rec: 12/17/18 15:07 EQ [facility]) Charges for Administration # of IVP Administrations 1 - PA / CABLE ASSEMBLER / Resident Statement MD/DO has reviewed & agrees with the documentation as recorded. - Scribe Statement The provider has reviewed the documentation as recorded by the Koko Velazquez All medical record entries made by the Koko were at my direction and pers onally dictated by me. I have reviewed the chart and agree that the record accurately reflects my personal performance of the history, physical exam, medical decision making, and the department course for this patient. I have also personally directed, reviewed, and agree with the discharge instructions and disposition. Disposition/Present on Arrival - Present on Arrival Any Indicators Present on Arrival: No History of DVT/PE: No History of Uncontrolled Diabetes: No Urinary Catheter: No History of Decub. Ulcer: No History Surgical Site Infection Following: None - Disposition Have Diagnosis and Disposition been Completed?: Yes Diagnosis: Costochondritis Disposition: HOME/ ROUTINE Disposition Time: 16:00 Patient Plan: Discharge Patient Problems: Current Active Problems Problem Status Onset Costochondritis Acute Condition: STABLE Discharge Instructions (ExitCare): Costochondritis (DC) Additional Instructions: Thank you for letting us take care of you today. You were treated for costochondritis. The emergency medical care you received today was directed at your acute symptoms. It may take several days for your symptoms to resolve. Return to the Emergency Department if your symptoms worsen, do not improve, or if you have any other problems. Please contact the clinic in 2 days for re-evaluation and follow up. Bring any paperwork you were given at discharge with you along with any medications you are taking to your follow up visit. Our treatment cannot replace ongoing medical care by a primary care provider (PCP) outside of the emergency department. Thank you for allowing the [facility] team to be part of your care today. Referrals: [facility] [[place]] - Follow up with primary Forms: [employer] ([place]), WORK NOTE
[2018-12-17 15:36] LABS: ALBUMIN 3.9 g/dL (3.0-4.8); ALT/SGPT 15 U/L (7-56); AST/SGOT 25 U/L (14-36); BLOOD UREA NITROGEN 10 mg/dL (7-21); CALCIUM 9.8 mg/dL (8.4-10.5); GFR NON-AFRICAN AMERICAN > 60; INR 1.05; PARTIAL THROMBOPLASTIN TIME 32.4 Seconds (26.9-38.3); PROTHROMBIN TIME 11.7 SECONDS (9.4-12.5)
--- NOTE | 2018-12-17 15:40 | RAD ---
Date of service: 12/17/2018 HISTORY: CP COMPARISON: 09/23/2018 FINDINGS: LUNGS: No active pulmonary disease. PLEURA: No significant pleural effusion identified, no pneumothorax apparent. CARDIOVASCULAR: No aortic atherosclerotic calcification present. Normal cardiac size. No pulmonary vascular congestion. OSSEOUS STRUCTURES: No significant abnormalities. VISUALIZED UPPER ABDOMEN: Normal. OTHER FINDINGS: None. IMPRESSION: No active disease.
[2018-12-17 15:47] LABS: TROPONIN I < 0.01 ng/mL
[2018-12-17 16:39] VITALS: BP 98/58; PULSE 92; O2SAT 98
--- NOTE | 2018-12-17 21:48 | CARD ---
APPROVED REPORT Date of service: 12/17/2018 EKG Measurement Heart [id number] <Conclusion> Normal sinus rhythm with sinus arrhythmia Normal ECG
== END 2018-12-17 16:58 | disposition home or self-care (01) ==
LOC: ED 12:40
DX: M94.0 Chondrocostal junction syndrome [Tietze] (principal); D64.9 Anemia, unspecified; F41.9 Anxiety disorder, unspecified; Z82.49 Family history of ischemic heart disease and other diseases of the circulatory system; Z87.891 Personal history of nicotine dependence
CPT/HCPCS: 71045; 80053; 81025; 82550; 83615; 83735; 83880; 84484; 85025; 85610; 85730; 93005; 96374; 96375; 99284; J1885; J2405; J7030